=== PATIENT | male | born 1960 | race Caucasian/White ===

== ENCOUNTER → 2017-05-09 | Outpatient (CLI) | payer OTHER ==
[~2017-05-09] MED LIST: EFFSR75 PO; WLLSR100 PO
[2017-05-09 12:06] LABS: BASO % 0.6 %; BASO ABS # 0.04 K/uL (0-0.2); EOS % 2.9 %; HEMATOCRIT 43.2 % (42-52); HEMOGLOBIN 15.1 g/dL (14.0-18.0); IG# 0.03 K/uL (0.00-0.02); LYMPH % 20.7 %; LYMPH ABS # 1.42 K/uL (1.2-3.4); MEAN CELL VOLUME 95.2 fL (80-100); MEAN CORPUSCULAR HEMOGLOBIN 33.3 pg (25-34); MEAN PLATELET VOLUME 9.3 fL (7.4-10.4); MONO % 10.5 %; MONO ABS # 0.72 K/uL (0.11-0.59); NEUT % 64.9 %; NEUT ABS # 4.44 K/uL (1.4-6.5); PLATELET COUNT 248 K/uL (130-400); RED CELL DISTRIBUTION WIDTH CV 13.2 % (11.5-14.5); RED CELL DISTRIBUTION WIDTH SD 45.8 fL (36.4-46.3); WHITE BLOOD COUNT 6.85 K/uL (4.8-10.8)
[2017-05-09 12:54] LABS: BLOOD UREA NITROGEN 16 mg/dl (7-18); CALCIUM 9.1 mg/dl (8.5-10.1); CARBON DIOXIDE 31 mmol/L (21-32); GLUCOSE 119 mg/dl (70-99); POTASSIUM 4.2 mmol/L (3.5-5.1); SODIUM 138 mmol/L (136-145)
== END | disposition home or self-care (01) ==
LOC: C.CPL 10:02
PROVIDERS: ATTEND Orthopaedic Surgery
DX: Z01.812 Encounter for preprocedural laboratory examination (principal); M25.511 Pain in right shoulder; Z01.810 Encounter for preprocedural cardiovascular examination

== ENCOUNTER → 2017-05-31 | Day surgery (SDC) | payer OTHER ==
[2017-05-15 07:36] VITALS: Ht 171.5 cm; Wt 75.5 kg
[~2017-05-31] VITALS: Ht 171.5 cm; Wt 75.5 kg
[~2017-05-31] MED LIST changes: +AMPH1TAB PO; +ATROPINE SULFATE 0.1 MG/ML 5ML SYR IV PRN; +BUPIVACAINE 0.25% 30 ML VIAL ONE; +BUPR-79 PO; +CEFAZOLIN 2000MG IV PUSH 15 ML IV SCH; -EFFSR75 PO; +EpHEDrine SULFATE 50MG/5ML SYR ONE; +EpINEphrine HCL INJ 1 MG/ML 1ML SYRINGE ONE; +FENTANYL CITRATE INJ 50 MCG/1 ML 2 ML VIAL IV PRN; +FENTANYL CITRATE INJ 50 MCG/1 ML 2 ML VIAL ONE; +IBUP1CAP9 PO; +KETO10TA PO; +KETOROLAC TROMETHAMINE 30 MG/ML VIAL IV. PRN; +LABETALOL HCL IV 5 MG/ML 20ML IV PRN; +LACTATED RINGER'S 1000ML 1,000 ML IV SCH; +LIDOCAINE HCL 2% 2 ML VIAL (20MG/ML) ONE; +MIDAZOLAM HCL 1 MG/ML 2ML VIAL ONE; +MULT-506 PO; +ONDANSETRON INJ 2 MG/ML 2 ML VIAL IV PRN; +ONDANSETRON INJ 2 MG/ML 2 ML VIAL ONE; +OXYC-57 PO; +OXYCODONE/ACETAMINOPHEN 5-325 TAB PO PRN; +PROPOFOL IV EMULSION 10 MG/ML 20 ML VIAL IV ONE; +ROCURONIUM BROMIDE 10 MG/ML 5 ML VIAL IV ONE; +ROPIVACAINE 0.5% 5 MG/ML 30 ML VIAL ONE; +SODIUM CHLORIDE 0.9% 1000ML 1,000 ML IV SCH; +TRAM-10 PO; +VORT1TAB3 PO; -WLLSR100 PO
--- NOTE | 2017-05-31 11:04 | History & Physical Bridge - [place] ---
H&P Re-Evaluation Bridge Note: I have examined the patient, reviewed the History & Physical and in the interval since the performance of the History & Physical I have noted the following changes of clinical significance: No changes noted
--- NOTE | 2017-05-31 15:52 | [facility] Post Operative Brief Note ---
Immediate Operative Summary Operative Date May 31, 2017. Pre-Operative Diagnosis Right Shoulder Full Thickness Rotator Cuff Tear Post-Operative Diagnosis same Procedure(s) Performed Right shoulder arthroscopic massive rotator cuff repair, extensive debridement. Surgeon Dr. Jessica Yang Counseling Services Director Surgeon(s) Laz Diallo PA-C Estimated Blood Loss 5ML Findings Consistent with Post-Op Diagnosis Specimens none Drains None Anesthesia Type General Regional Complication(s) none Disposition Disposition: Recovery Room / PACU
--- NOTE | 2017-05-31 15:53 | Discharge Instructions-SurgCtr ---
Discharge Instructions Date of Service May 31, 2017. Visit Reason for Visit: Right Shoulder Full Thickness Rotator Cuff Tear Discharge Discharge Diagnosis / Problem: SAME ABOVE Discharge Goals Goal(s): Decrease discomfort, Improve function Medications Stopped Medications Name(s): Ibuprofen Restart Stopped Medication(s): DO NOT TAKE IBUPROFEN UNTIL FINISHED WITH THE TORADOL TAKE TORADOL EVERY 8 HOURS WITH FOOD Activity Recommendations Activity Limitations: as noted below Lifting Limitations: until after follow-up appointment Exercise/Sports Limitations: until after follow-up appointment Shower/Bathe: tomorrow Anesthesia . Post Anesthesia Instructions: If you have had General Anesthesia or IV Sedation: * Do not drive today. * Resume driving when surgeon permits. * Do not make important decisions or sign legal documents today. * Call surgeon for: 1. Temperature elevations greater than 101 degrees F. 2. Uncontrollable pain. 3. Excessive bleeding. 4. Persistent nausea and vomiting. 5. Medication intolerance (nausea, vomiting or rash). * For nausea and vomiting use only clear liquids such as: tea, soda, bouillon until nausea subsides, then gradually increase diet as tolerated. * If you have any concerns or questions, call your surgeon's office. If physician is unavailable and it is an emergency, call 911 or go to the nearest emergency room. . Instructions / Follow-Up Instructions / Follow-Up MEDICATIONS: * Resume previous medications unless instructed otherwise by your surgeon. * Always take pain medication on a full stomach or with food to avoid upset stomach. * Do not drink alcohol or drive while taking narcotics. * Ibuprofen or Tylenol may be taken if narcotic not needed. SPECIAL CARE INSTRUCTIONS: __ None _X_ Keep extremity elevated and iced x 48 hours; apply ice 20-30 minutes 8-10 times/day. May remove at night. __ Sling __24 hrs/day __ Remove at night _X_ Shoulder Immobilizer (MAY REMOVE AFTER 48 HOURS ONLY TO SHOWER) _X_ 24 hrs/day __ Remove at night _X_ Dressing __ Maintain until seen in office, may shower with plastic over site _X_ Remove dressings in 24-48 hours and then may shower _X_ Cover incisions with band-aids after showering __ Do not remove steri-strips Call physician if chills or temperature rises above 102 degrees or pain unrelieved by prescribed pain medications at . . Diet Recommendations Home Diet: no limitations Fluid Restriction: None Procedures Procedures Performed: Right shoulder arthroscopic massive rotator cuff repair, extensive debridement. Pending Studies Studies pending at discharge: no Work Instructions Return To Work: after follow-up Lifting Limitations: NO LIFTING WITH RIGHT SHOULDER Medical Emergencies . Who to Call and When: Medical Emergencies: If at any time you feel your situation is an emergency, please call 911 immediately. . Non-Emergent Contact Non-Emergency issues call your: Primary Care Provider Call Non-Emergent contact if: you have a fever, temperature is above 101.5 . . "Provider Documentation" section prepared by Kenney Diallo. .
[2017-05-31 16:43] VITALS: TEMP 36.9
[2017-05-31 17:06] VITALS: BP 160/87; PULSE 59; O2SAT 95
--- NOTE | 2017-05-31 17:12 | Anesthesia Progress Nt - [facility] ---
Anesthesia Post Op Note Date & Time May 31, 2017 at 17:12 Vital Signs Vital Signs Past 12 Hours Date Time Temp Pulse Resp B/P (MAP) Pulse Ox O2 Delivery O2 Flow Rate FiO2 05/31/17 17:06 59 16 160/87 (111) 95 Room Air 05/31/17 16:43 36.9 67 16 149/93 (111) 94 Room Air 05/31/17 16:28 68 15 05/31/17 16:28 64 15 98 05/31/17 16:27 37.0 63 16 145/94 98 Room Air 05/31/17 16:26 145/94 05/31/17 16:23 59 17 05/31/17 16:23 60 17 98 05/31/17 16:21 179/88 05/31/17 16:18 66 17 05/31/17 16:18 65 17 96 05/31/17 16:17 166/92 05/31/17 16:13 54 16 05/31/17 16:13 56 16 100 05/31/17 16:12 177/57 05/31/17 16:08 60 18 05/31/17 16:08 59 18 100 05/31/17 16:06 182/112 05/31/17 16:03 64 18 100 05/31/17 16:03 65 18 05/31/17 16:01 189/131 05/31/17 15:58 63 22 05/31/17 15:58 63 22 99 05/31/17 15:56 177/106 05/31/17 15:53 68 18 174/100 97 05/31/17 15:53 71 18 05/31/17 15:52 188/107 05/31/17 15:51 36.4 71 20 174/100 99 Mask 6 05/31/17 13:08 59 19 99 05/31/17 13:08 58 05/31/17 13:07 61 17 99 05/31/17 13:07 61 05/31/17 13:06 138/83 05/31/17 13:02 65 05/31/17 13:02 62 99 05/31/17 13:01 122/83 05/31/17 13:00 63 99 05/31/17 13:00 58 05/31/17 12:56 125/82 05/31/17 12:55 67 05/31/17 12:55 68 17 99 05/31/17 12:51 134/81 05/31/17 12:50 62 05/31/17 12:50 66 98 05/31/17 12:46 118/81 05/31/17 12:45 65 98 05/31/17 12:45 65 05/31/17 12:41 126/88 05/31/17 12:40 62 05/31/17 12:40 69 15 98 05/31/17 12:36 144/86 05/31/17 12:35 73 05/31/17 12:35 72 16 99 05/31/17 12:31 129/82 05/31/17 12:30 63 19 05/31/17 12:30 60 19 96 05/31/17 12:29 134/94 05/31/17 11:01 36.8 62 18 157/87 (110) 98 Room Air Notes Mental Status: alert / awake / arousable, participated in evaluation Pt Amnestic to Procedure: Yes Nausea / Vomiting: adequately controlled Pain: adequately controlled Airway Patency, RR, SpO2: stable & adequate BP & HR: stable & adequate Hydration State: stable & adequate Anesthetic Complications: no major complications apparent
--- NOTE | 2017-05-31 17:35 | OPERATIVE REPORT ---
DATE OF OPERATION: 05/31/2017 PREOPERATIVE DIAGNOSIS: Massive recurrent right rotator cuff tear. POSTOPERATIVE DIAGNOSIS: Massive recurrent rotator cuff tear. PROCEDURE: Right shoulder diagnostic arthroscopy with extensive debridement and massive rotator cuff repair. SURGEON: Dr. Jonah Yang. TELECOMMUNICATION ENGINEER: Laz Diallo PA-C, whose assistance was necessary for positioning the arm and helping with instrumentation. ANESTHESIA: General with a right interscalene nerve block. COMPLICATIONS: None. CONDITION: Stable to PACU. This case took over 50% longer than a normal rotator cuff repair. The sites of the repair involved 3 of the 4 cuff tendons. There was also a revision repair and significant time was spent releasing the scar tissue to free up the rotator cuff. INDICATIONS: Twin is a pleasant 56-year-old male who underwent a large rotator cuff repair by Dr. Mendoza 14 years ago. He initially did fairly well, but more recently he has been having increased shoulder pain. MRI and clinical examination have shown a massive retracted rotator cuff tear. After failing conservative treatment, he elected to undergo arthroscopy. DESCRIPTION OF PROCEDURE: On 05/31/2017, he arrived at [facility] for the above procedure. He was seen in the preoperative holding area and the operative extremity was identified and signed. He was given a preoperative antibiotic and a right interscalene nerve block. He was taken back to the operating room, laid on the table in supine position and put under general anesthesia. He was then put into the beach chair position. The right shoulder was prepped and draped in sterile fashion. Time-out was done and the patient's operative extremity was properly identified. A scope was introduced into the posterior portal. Diagnostic arthroscopy showed no cartilage damage to the humeral head or the glenoid. There was some fraying of the labrum. The biceps tendon had been traumatically tenotomized. There was some tearing of the upper half of the subscapularis. It was elevated off the lesser tuberosity. There was a tear of the entire supraspinatus and most of the infraspinatus. The teres minor was intact. An anterior portal was made. A shaver was used to start an extensive debridement of some of the intra-articular structures. The biceps stump was debrided back to stable margins. The scope was then put into the subacromial space. A lateral portal was made. A shaver was used to do a complete subacromial and subdeltoid bursectomy. Significant time was spent debriding back any scar tissue to better define the cuff tear. Two additional lateral portal were made and Adeola cannulas were placed in each of the 3 lateral portals. I felt that the tear was amenable to repair and did not need a superior capsular reconstruction. The greater tuberosity was prepared with a ring curette and a microfracture. I did medialize the footprint. The rotator cuff was then fixed with an Arthrex suspension bridge configuration using 4 medial row 4.75-mm BioComposite SwiveLock suture anchors with FiberTapes. The tapes were passed through the tendon at the anticipated articular margin and brought down to 1 of 4 lateral row SwiveLock suture anchors. This gave a nice knotless repair. I did span the construct all the way around to include the upper half of the subscapularis. I was able to restore more than 50% of the footprint. Multiple pictures were taken. The scope was placed back into the glenohumeral joint and the articular margin had been restored. Pictures were taken. Arthroscopic instruments were removed from the shoulder. Portal sites were closed with 3-0 nylon. He was then placed in a soft dressing and an abduction arm sling. He was then extubated, transferred to a litter and taken to the postanesthesia care unit in stable condition. He tolerated the procedure well. I attest to the content of the Intraoperative Record and any orders documented therein. Any exception s are noted below.
== END | disposition home or self-care (01) ==
LOC: X.SURG 10:22
PROVIDERS: ATTEND Orthopaedic Surgery
DX: S46.011A Strain of muscle(s) and tendon(s) of the rotator cuff of right shoulder, initial encounter (principal); W19.XXXA Unspecified fall, initial encounter; Y92.254 Theater (live) as the place of occurrence of the external cause; F32.9 Major depressive disorder, single episode, unspecified; Z96.643 Presence of artificial hip joint, bilateral

== ENCOUNTER 2025-02-02 07:26 | Inpatient (IN) ==
--- NOTE | 2025-02-02 07:52 | Emergency Department Note ---
Impression & Plan Cellulitis of right ankle, Ankle pain, right ED Provider Note CHIEF COMPLAINT: Stung/bite HISTORY OF PRESENTING ILLNESS: The patient is a 64-year-old male who reports to the emergency department via private vehicle stating that he was bit by something about a week ago. He believes that it was an insect or a sting but is not sure. The area of discomfort is on the right outer ankle. He reports going to urgent care 2 days ago, starting antibiotics yesterday, and that the redness is spreading outside of the skin marker that was drawn at urgent care. Reports noticing pain in the right calf. He denies fever, nausea, vomiting, chest pain, shortness of breath, drainage from the area. REVIEW OF SYSTEMS: See HPI for pertinent positives and pertinent negatives. ALLERGIES: NKDA MEDICATIONS: See below PAST MEDICAL HISTORY: See below PHYSICAL EXAM: VITALS: Vitals are noted on the nurses note and reviewed by myself. Vital signs stable. GENERAL: 64-year-old male, lying comfortably in bed, in no acute distress, nondiaphoretic, well-developed well-nourished. SKIN: Area of circular erythema on the lateral aspect of the right ankle. Skin marker previously applied with a mild amount of erythema extending out of it. No fluctuance or drainage. HEENT: Normocephalic. PERRLA. EOMI. Nares patent. Mucous membranes moist. Neck is supple without nuchal rigidity. MUSCULOSKELETAL: No gross musculoskeletal defects. Right ankle FROM. No calf tenderness. 2+ dorsalis pedis pulse palpated bilaterally. NEURO: Patient was alert and oriented to person place and time. No focal neurological deficits. DIFFERENTIAL DIAGNOSIS: Cellulitis, erysipelas, abscess, foreign body, osteomyelitis, dermatitis, DVT, among others. ED COURSE AND MEDICAL DECISION MAKING: HISTORY FROM INDEPENDENT HISTORIAN: The patient himself. MEDICATIONS GIVEN: 2 g Rocephin IV, denies the need for pain management INTERPRETATION OF LABS: I interpreted the labs with full lab results as below in the lab section of this note. Pertinent lab results discussed in the MDM section below. INTERPRETATION OF IMAGING: Imaging studies were interpreted by myself and read by radiology as per the imaging section of this note. X-ray right ankle - No osteomyelitis. No fracture. Achilles tendon calcifications CONSULTATIONS: On-call [facility]ist - Presented the patient to the provider and that patient's right ankle cellulitis is worsening on oral antibiotics. Agreed to evaluate the patient and admitting for IV antibiotics. MDM SUMMARY: I evaluated the 64-year-old male who presents to the ER after being stung/bit by something a week ago, starting antibiotics, and worsening redness. See HPI and PE above. Patient's vitals are stable. 2 g Rocephin IV was given. Labs obtained showing no leukocytosis. Hemodynamically stable. No electrolyte abnormality. No CHET. Lactate 1.1. Procalcitonin <0.02. X-ray obtained showing no osteomyelitis or fracture. All laboratory and imaging results thoroughly reviewed with the patient. A consultation with the on-call [facility] hospitalist can be seen above. I do believe the patient would benefit from IV antibiotics and monitoring overnight. Patient is agreeable to admission and all questions answered. The patient was admitted in stable condition. DIAGNOSIS: Cellulitis right ankle, right ankle pain The chart was completed utilizing [employer] voice recognition software. Grammatical errors, random word insertions, pronoun errors, and incomplete sentences are an occasional consequence of this system due to software limitations, ambient noise, and hardware issues. Any formal questions or concerns about the content, text, or information contained within the body of this dictation should be directly addressed to the provider for clarification. Past Med/Surg History Problem List At risk for alcohol withdrawal History of alcohol use Ankle pain, right (Acute) Cellulitis of right ankle (Acute) Cellulitis of right lower extremity Ganglion, left hand Left carpal tunnel syndrome Low back pain Left knee DJD Left knee pain H/O bilateral hip replacements Rupture of left Achilles tendon Encounter for pre-operative examination Achilles rupture, left Achilles tendonitis Encounter for pre-operative examination Wrist arthritis Carpal tunnel syndrome on both sides Degeneration of intervertebral disc of cervical spine without disc herniation Numbness of arm Neck pain Lumbar disc herniation with myelopathy Degenerative disc disease at L5-S1 level (Acute) Suicidal ideation (Acute) Depression (Acute) Medical History Depression Rheumatoid arthritis possibly in the past? no definite diagnosis, has since resolved. Medical marijuana use History of multiple concussions History of ulcerative colitis Surgical History History of carpal tunnel release RT History of repair of right rotator cuff x2 History of repair of left rotator cuff History of arthroscopy of left knee x3 History of arthroscopy of right knee x6 History of total left hip replacement History of total right hip replacement History of colonoscopy History of right inguinal hernia repair at age of 4 History of wisdom tooth extraction Hx of LASIK Family History Sister Hx of chronic lymphocytic leukemia Brother Hx of chronic lymphocytic leukemia Other Cancer No family history of adverse response to anesthesia Social History Smoking Status: Never smoker Second Hand Exposure: No; Do You Dip or Chew Tobacco: Yes; Hx Alcohol Use: Yes Alcohol type: beer Hx Substance Use: Yes Last Used Substance: Hours (ago) Last Used Substance Other:: 07/10/24 (advised on policy) Preferred Language: Moldovan Communication Ability: Effective Bag Sealer Required: No Beliefs That Will Affect Care: None Current Living Situation: Alone Other Information That Helps Us Care for You: No Feels Safe at Home: Yes Safety Concerns: Feels Safe At This Time Assistive Devices: None Allergies Allergies Allergy/AdvReac Type Severity Reaction Status Date / Time bee venom protein (honey bee) Allergy Unknown Unverified 02/02/25 10:34 shellfish derived Allergy Unknown Unverified 02/02/25 10:34 Home Meds Home Medications Medication Instructions Recorded Confirmed bupropion HCl 300 mg 24 hr tablet, 300 mg PO QAM 11/18/20 02/02/25 extended release buspirone 10 mg tablet 20 mg PO QAM 11/18/20 02/02/25 multivitamin 1 tab PO QAM 11/18/20 02/02/25 cyanocobalamin (vitamin B-12) 1,000 mcg PO QAM 02/21/21 02/02/25 1,000 mcg tablet (Vitamin B-12) milk thistle 500 mg capsule 500 mg PO QAM 07/11/24 02/02/25 quetiapine 200 mg tablet 200 mg PO HS 07/11/24 02/02/25 naltrexone 50 mg tablet 50 mg PO QAM 02/02/25 02/02/25 Results & Data (ED) Vital Signs Vital Signs - 24 hr 02/02/25 07:27 02/02/25 08:00 02/02/25 10:00 Temperature 36.5 C Temperature Source Temporal Artery Scan Pulse Rate 93 H Pulse Rate [Right Finger] 70 69 Respiratory Rate 18 18 18 Respiratory Effort / Characteristics Non-Labored Spontaneous Non-Labored Spontaneous Non-Labored Spontaneous Respiratory Depth Normal Normal Normal Respiratory Pattern Regular Regular Blood Pressure 144/93 H Blood Pressure [Left Arm] 142/102 H Blood Pressure Mean 110 Blood Pressure Mean [Left Arm] 115 Blood Pressure Position [Left Arm] Sitting Pulse Oximetry 94 94 96 Oxygen Delivery Method Room Air Room Air Room Air Sepsis Recent Fever Within 48 Hours No Sepsis New/Unexplained Change in Mental Status N/A Sepsis Action Taken by Nursing No Action Required Laboratory Data 02/02/25 07:50 02/02/25 07:50 Lab Results 02/02/25 02/02/25 Range/Units 07:50 08:16 WBC 8.13 (4.8-10.8) K/ul RBC 4.63 L (4.70-6.10) M/uL Hgb 15.3 (14.0-18.0) g/dl Hct 44.0 (42.0-52.0) % MCV 95.0 (80.0-100.0) fL MCH 33.0 (25.0-34.0) pg MCHC 34.8 (32.0-36.0) g/dL RDW Std Deviation 44.0 (36.4-46.3) fL RDW Coeff of Ye 12.6 (11.5-14.5) % Plt Count 275 (130-400) K/uL MPV 9.0 L (9.4-12.4) fL Immature Gran % (Auto) 0.6 % Neut % (Auto) 64.2 % Lymph % (Auto) 20.3 % Crook % (Auto) 11.9 % Eos % (Auto) 2.1 % Baso % (Auto) 0.9 % Neut # (Auto) 5.22 (1.40-6.50) K/uL Lymph # (Auto) 1.65 (1.20-3.40) K/uL Crook # (Auto) 0.97 H (0.11-0.59) K/uL Eos # (Auto) 0.17 (0.00-0.50) K/uL Baso # (Auto) 0.07 (0.00-0.20) K/uL Immature Gran # (Auto) 0.05 (0.01-0.20) K/uL Sodium 140 (136-145) mmol/L Potassium 4.3 (3.5-5.1) mmol/L Chloride 106 (98-107) mmol/L Carbon Dioxide 27 (21-32) mmol/L Anion Gap 7 (3-11) BUN 12 (6-23) mg/dl Creatinine 0.87 (0.6-1.4) mg/dl Est Cr Clr Drug Dosing 79.1 ml/min eGFR 95.76 BUN/Creatinine Ratio 13.8 (10-20) Glucose 119 H (70-99(Fasting)) mg/dl Lactate 1.1 (0.4-2.0) mmol/L Calcium 9.3 (8.6-10.3) mg/dl Total Bilirubin 0.6 (0.2-1.0) mg/dl AST 27 (13-39) U/L ALT 17 (7-52) U/L Alkaline Phosphatase 70 (34-104) U/L Total Protein 6.8 (6.0-8.3) gm/dl Albumin 3.8 (3.4-5.0) gm/dl Globulin 3.0 (2.5-4.0) gm/dl Albumin/Globulin Ratio 1.3 (0.9-2) Procalcitonin < 0.02 (0-0.5) ng/ml Administered Medications Chlordiazepoxide HCl (Chlordiazepoxide Hcl 25 Mg Cap) 25 mg PO Q6H LOBO; Protocol Stop: 02/03/25 06:47 Last Admin: 02/02/25 15:57 Dose: 25 mg Documented By: HERMES Enoxaparin Sodium (Enoxaparin Inj 40 Mg/0.4 Ml Syr) 40 mg SQ Q24H [facility] Stop: 03/04/25 12:59 Last Admin: 02/02/25 14:13 Dose: 40 mg Documented By: DONN Folic Acid (Folic Acid 1 Mg Tab) 1 mg PO QAM LOBO Stop: 03/04/25 12:45 Last Admin: 02/02/25 14:15 Dose: 1 mg Documented By: DONN Lactobacillus Acidophilus (Advanced Probiotic 625 Mg Capsule) 1,250 mg PO DAILY [facility] Stop: 03/04/25 12:45 Last Admin: 02/02/25 14:14 Dose: 1,250 mg Documented By: DONN Thiamine HCl (Thiamine Hcl 100 Mg Tab) 100 mg PO QAM LOBO Stop: 03/04/25 12:45 Last Admin: 02/02/25 14:13 Dose: 100 mg Documented By: DONN Discontinued Medications Bupropion HCl (Bupropion Xl 300 Mg Tabcr) 300 mg PO NOW STA Stop: 02/02/25 11:12 Last Admin: 02/02/25 11:36 Dose: 300 mg Documented By: sharmila Buspirone HCl (Buspirone 5 Mg Tab) 20 mg PO NOW STA Stop: 02/02/25 11:12 Last Admin: 02/02/25 11:34 Dose: 20 mg Documented By: sharmila Cyanocobalamin (Cyanocobalamin (B-12) 500 Mcg Tablet) 1,000 mcg PO NOW STA Stop: 02/02/25 11:13 Last Admin: 02/02/25 11:35 Dose: 1,000 mcg Documented By: sharmila Ceftriaxone Sodium (Rocephin) 2,000 mg in 50 mls @ 100 mls/hr IV NOW STA Stop: 02/02/25 08:29 Last Infusion: 02/02/25 08:46 Dose: Infused Documented By: sharmila Admin: 02/02/25 08:14 Dose: 100 mls/hr Documented By: sharmila Ibuprofen (Ibuprofen 600 Mg Tab) 600 mg PO NOW STA Stop: 02/02/25 10:55 Last Admin: 02/02/25 11:32 Dose: 600 mg Documented By: sharmila Multivitamins (Multivitamin Tab) 1 tab PO NOW STA Stop: 02/02/25 11:14 Last Admin: 02/02/25 11:35 Dose: 1 tab Documented By: sharmila Naltrexone HCl (Naltrexone Hcl 50 Mg Tab) 50 mg PO NOW STA Stop: 02/02/25 11:12 Last Admin: 02/02/25 11:32 Dose: 50 mg Documented By: sharmila Imaging Data Radiologist's Impression: Ankle X-Ray 02/02/25 08:00 XR ankle RT min 3V routine CLINICAL HISTORY: Infection right ankle COMPARISON: None FINDINGS: 3 views are provided for interpretation. No fractures or dislocations are visualized. There are no erosive or destructive changes. There are calcifications present within the Achilles tendon. There is a small bone island within the distal tibial metaphysis. No gas is visualized within the soft tissues. IMPRESSION: 1. No conventional radiographic evidence of osteomyelitis 2. No acute fractures 3. Achilles tendon calcifications ACT 112: Negative or not required by law. Electronically signed by: Jermain Steiner M.D. 02/02/2025 8:30 AM Discharge Plan Visit Data Chief Complaint: Bite Stated Complaint: STUNG/BITE ED Provider: Pauline Patel ED Midlevel Provider: Babs Boyle Discharge Problem: Cellulitis of right ankle, Ankle pain, right Patient Disposition: Admitted As Inpatient Condition: Good Discharge Instructions Interventions: ED Discharge Assessment Last Done: 02/02/25 12:46
[2025-02-02] MEDS: cefTRIAXone SODIUM 2,000 MG/50 ML BAG IV STA (08:14)
[2025-02-02 08:33] LABS: Hematocrit (blood only) 44.0 % (42.0-52.0); Hemoglobin 15.3 g/dl (14.0-18.0); Immature Granulocytes # (auto) 0.05 K/uL (0.01-0.20); Immature Granulocytes % (auto) 0.6 %; Mean Corpuscular Hemoglobin 33.0 pg (25.0-34.0); Mean Corpuscular Volume 95.0 fL (80.0-100.0); Platelet Count 275 K/uL (130-400); RDW Standard Deviation 44.0 fL (36.4-46.3); Red Blood Count 4.63 M/uL (4.70-6.10); White Blood Count 8.13 K/ul (4.8-10.8)
--- NOTE | 2025-02-02 08:33 | XRay Report ---
XR ankle RT min 3V routine CLINICAL HISTORY: Infection right ankle COMPARISON: None FINDINGS: 3 views are provided for interpretation. No fractures or dislocations are visualized. Ther e are no erosive or destructive changes. There are calcifications present within the Achilles tendon. There is a small bone island within the distal tibial metaphysis. No gas is visualized within the so ft tissues. IMPRESSION: 1. No conventional radiographic evidence of osteomyelitis 2. No acute fractures 3. Achilles tendon calcifications ACT 112: Negative or not required by law. Electronically signed by: Jermain Steiner M.D. 02/02/2025 8:30 AM
[2025-02-02 08:54] LABS: Alanine Aminotransferase 17.0 U/L (7-52); Albumin Globulin Ratio 1.3 (0.9-2); Albumin Level 3.8 gm/dl (3.4-5.0); Alkaline Phosphatase 70.0 U/L (34-104); Anion Gap 7.0 (3-11); Bilirubin,Total 0.6 mg/dl (0.2-1.0); Blood Urea Nitrogen 12.0 mg/dl (6-23); Calcium 9.3 mg/dl (8.6-10.3); Carbon Dioxide 27.0 mmol/L (21-32); Chloride 106.0 mmol/L (98-107); Creatinine Clr Calc Pharmacy 79.1 ml/min; Globulin 3.0 gm/dl (2.5-4.0); Glucose 119.0 mg/dl (70-99(Fasting)); Potassium 4.3 mmol/L (3.5-5.1); Sodium 140.0 mmol/L (136-145); Total Protein 6.8 gm/dl (6.0-8.3)
--- NOTE | 2025-02-02 09:49 | History & Physical Report ---
<Statement entered by Venu Parmar DO - 02/02/25 11:47> I have seen and examined the patient and have discussed the case with the advance practice provider. I have reviewed the advanced practitioner's documentation, and I agree with, and take responsibility for that plan of care. Patient states that his pretty much remained stable and the redness around his lateral malleolus the last 24 hours. He denies any fever or chills. Does admit to still using a fair amount of alcohol. Agree with plans for IV antibiotics Discussed with the patient and SANDOR some scheduled Librium to manage any early signs of alcohol withdrawal. Patient states that he occasionally will have some shakes and tremors if he stops drinking alcohol for a period of time. Further plan of care as outlined below I spent a total of 17 minutes coordinating, documenting, and providing care for this patient excluding time spent by another provider/QHP. Date of Service February 02, 2025 Assessment & Plan (1) Cellulitis of right lower extremity: (2) History of alcohol use: (3) At risk for alcohol withdrawal: Plan: Patient is a 64-year-old male with past medical history significant for generalized osteoarthritis, inflammatory arthritis, chondrocalcinosis, ADD and history of alcohol abuse who presented the ED with complaint of an infected bug bite on his right ankle and was found to have RLE cellulitis. Cellulitis of R ankle region, lateral aspect Bug bite on lateral aspect of R ankle approximately 1 week ago. 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 Developed erythema and pain around bite site starting on . Was seen by urgent care on Sunday and started on po Keflex. Took 4 doses. Erythema, pain and swelling continued to worsen despite compliance with Keflex. No reported systemic complaints such as fever or chills. Labs personally reviewed and grossly unremarkable - no leukocytosis, negative procal. R ankle XR grossly unremarkable. S/p dose of IV Rocephin in ED. Will continue IV Rocephin for now and monitor treatment response. History of alcohol abuse Chronic alcohol use >20yr. Consumes 3-4 beers/day. Previously was consuming 12-pack of beer/day. Has been slowly weaning, recently started on naltrexone a few weeks ago. No prior personal h/o alcohol withdrawal or alcohol withdrawal seizures. Start Librium taper course, PRN Ativan per AWSS protocol. Monitor AWSS scoring. Other chronic medical conditions: ADD/mood disorder - Continue home psych medication regimen including Wellbutrin, BuSpar and Seroquel. 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 DVT Prophylaxis: SQ Lovenox Code Status: FULL CODE PCP: Benjamin Holly MD Disposition: Admit to med/surg Patient seen in collaboration with Dr. Parmar. Please see addendum. I spent a total of 52 minutes coordinating, documenting, and providing care for this patient excluding time spent in the performance of separately billed services or time spent by another provider/QHP. This included personally reviewing all current laboratories and imaging studies, medical reconciliation, outpatient chart review and discussion with specialists. This chart was completed in part utilizing Speech Voice Recognition Software. Grammatical errors, random word insertions, pronoun errors, and incomplete sentences are an occasional consequence of this system due to software limitations, ambient noise, and hardware issues. Any formal questions or concerns about the content, text, or information contained within the body of this dictation should be directly addressed to the provider for clarification. History of Present Illness Chief Complaint: Infected bug bite on R ankle Primary Care Provider: Benjamin Holly MD Patient is a 64-year-old male with past medical history significant for generalized osteoarthritis, inflammatory arthritis, chondrocalcinosis, ADD and history of alcohol abuse who presented the ED with complaint of an infected bug bite on his right ankle. History obtained from the patient, discussion with ED provider and associated chart review. Noticed a bug bite on the lateral aspect of his right ankle approximately 1 week ago. Unclear what exactly bit him. Mentions that area of the bite has been quite pruritic. Started to develop erythema surrounding the bite site last which has progressively worsened. Mentions erythematous area is mildly TTP and warm to touch. No reported fevers or chills. Was seen at an urgent care facility on Sunday and prescribed oral Keflex. The area of erythema on his lateral right ankle was outlined with surgical marker. The erythema has slowly continued to spread beyond the surgical marking despite compliance with oral antibiotic therapy which ultimately made him decide to come in to the ED. Mild discomfort with movement of the right ankle joint but otherwise no changes in joint mobility. No prior cigarette use. Recreational marijuana use. Chronic alcohol use >20 years. Consumes 3-4 beers/day, last alcoholic beverage consumed yesterday afternoon. Has been weaning down. Previously was drinking a 12-pack of beer/day. On naltrexone with the intention of quitting eventually. Strong family history of alcoholism. No personal history of alcohol withdrawal or alcohol withdrawal seizures. Allergies Allergy/AdvReac Type Severity Reaction Status Date / Time bee venom protein (honey bee) Allergy Unknown Unverified 02/02/25 10:34 shellfish derived Allergy Unknown Unverified 02/02/25 10:34 Home Medications Medication Instructions Recorded Confirmed Type bupropion HCl 300 mg 24 hr tablet, 300 mg PO QAM 11/18/20 02/02/25 History extended release buspirone 10 mg tablet 20 mg PO QAM 11/18/20 02/02/25 History multivitamin 1 tab PO QAM 11/18/20 02/02/25 History cyanocobalamin (vitamin B-12) 1,000 mcg PO QAM 02/21/21 02/02/25 History 1,000 mcg tablet (Vitamin B-12) milk thistle 500 mg capsule 500 mg PO QAM 07/11/24 02/02/25 History quetiapine 200 mg tablet 200 mg PO HS 07/11/24 02/02/25 History naltrexone 50 mg tablet 50 mg PO QAM 02/02/25 02/02/25 History Past Med/Surg History Problem List (Updated 02/02/25 @ 11:29 by Reva Levy PA-C) At risk for alcohol withdrawal History of alcohol use Ankle pain, right (Acute) Cellulitis of right ankle (Acute) Cellulitis of right lower extremity Ganglion, left hand Left carpal tunnel syndrome Low back pain Left knee DJD Left knee pain H/O bilateral hip replacements Rupture of left Achilles tendon Encounter for pre-operative examination Achilles rupture, left Achilles tendonitis Encounter for pre-operative examination Wrist arthritis Carpal tunnel syndrome on both sides Degeneration of intervertebral disc of cervical spine without disc herniation Numbness of arm Neck pain Lumbar disc herniation with myelopathy Degenerative disc disease at L5-S1 level (Acute) Suicidal ideation (Acute) Depression (Acute) Medical History Depression Rheumatoid arthritis possibly in the past? no definite diagnosis, has since resolved. Medical marijuana use History of multiple concussions History of ulcerative colitis Surgical History History of carpal tunnel release RT History of repair of right rotator cuff x2 History of repair of left rotator cuff History of arthroscopy of left knee x3 History of arthroscopy of right knee x6 History of total left hip replacement History of total right hip replacement History of colonoscopy History of right inguinal hernia repair at age of 4 History of wisdom tooth extraction Hx of LASIK Family History Sister Hx of chronic lymphocytic leukemia Brother Hx of chronic lymphocytic leukemia Other Cancer No family history of adverse response to anesthesia Social History Smoking Status: Never smoker Second Hand Exposure: No; Do You Dip or Chew Tobacco: Yes (1 can nicotine pouches/week (advised on polic y)); Hx Alcohol Use: Yes Hx Substance Use: Yes (medical marijuana) Last Used Substance Other:: 07/10/24 (advised on policy) Preferred Language: Arabic Communication Ability: Effective Copier Operator Required: No Beliefs That Will Affect Care: None Current Living Situation: Alone Feels Safe at Home: Yes Assistive Devices: None Review of Systems Review of Systems: At least ten systems reviewed and negative, except as noted in the HPI. Physical Exam Physical Exam: General: WD/WN, NAD, sitting up in bed, A&Ox3, conversing appropriately HEENT: Normocephalic, atraumatic, moist mucous membranes Respiratory: Normal respiratory effort, CTAB Cardiovascular: RRR, normal peripheral pulses, no BLE edema Abdomen/GI: Normal bowel sounds, soft, nontender to palpation in all quadrants Extremities/MSK: Area of circular erythema on lateral aspect of R ankle (surgical marker outlining this region with minimal erythema extending beyond the demarcation), extremities motor strength intact, able to actively move all extremities Neurologic: No overt focal deficits, CN's II-XI not formally tested but appear grossly intact bilaterally Results & Data Results & Data Vital Signs (Past 12 Hours) Vital Signs Temp Pulse Pulse Resp BP Pulse Ox O2 Del Method 02/02/25 08:00 70 18 94 Room Air 02/02/25 07:27 36.5 C 93 H 18 144/93 H 94 Room Air Laboratory Results Short CBC 02/02/25 Range/Units 07:50 WBC 8.13 (4.8-10.8) K/ul Hgb 15.3 (14.0-18.0) g/dl Hct 44.0 (42.0-52.0) % Plt Count 275 (130-400) K/uL BMP 02/02/25 07:50 Sodium 140 Potassium 4.3 Chloride 106 Carbon Dioxide 27 BUN 12 Creatinine 0.87 Glucose 119 H Calcium 9.3 Liver Function 02/02/25 Range/Units 07:50 Total Bilirubin 0.6 (0.2-1.0) mg/dl AST 27 (13-39) U/L ALT 17 (7-52) U/L Alkaline Phosphatase 70 (34-104) U/L Albumin 3.8 (3.4-5.0) gm/dl Diagnostic Findings Ankle X-Ray 02/02/25 08:00 XR ankle RT min 3V routine CLINICAL HISTORY: Infection right ankle COMPARISON: None FINDINGS: 3 views are provided for interpretation. No fractures or dislocations are visualized. There are no erosive or destructive changes. There are calcifications present within the Achilles tendon. There is a small bone island within the distal tibial metaphysis. No gas is visualized within the soft tissue s. IMPRESSION: 1. No conventional radiographic evidence of osteomyelitis 2. No acute fractures 3. Achilles tendon calcifications ACT 112: Negative or not required by law. Electronically signed by: Jermain Steiner M.D. 02/02/2025 8:30 AM Medications Administered Discontinued Medications Ceftriaxone Sodium (Rocephin) 2,000 mg in 50 mls @ 100 mls/hr IV NOW STA Stop: 02/02/25 08:29 Last Infusion: 02/02/25 08:46 Dose: Infused Documented By: sharmila Admin: 02/02/25 08:14 Dose: 100 mls/hr Documented By: sharmila
--- NOTE | 2025-02-02 10:20 | Emergency Department Note ---
ED Visit Note I was consulted by the Advanced Practice Provider. I personally approved the management plan and take responsibility for the patient management. This includes the aspects of: -History/Physical/Personally seeing the patient -MDM -I independently interpreted the following studies:Studies and results .
[2025-02-02] MEDS ORDERED: NON-FORMULARY MEDICATION (Multivitamin 1 TAB) PO STA (11:12)
[2025-02-02] MEDS: NALTREXONE HCL 50 MG TAB PO STA (11:32)
[2025-02-02] MEDS: IBUPROFEN 600 MG TAB PO STA (11:32)
[2025-02-02] MEDS: busPIRone 5 MG TAB PO STA (11:34)
[2025-02-02] MEDS: CYANOCOBALAMIN (B-12) 500 MCG TABLET PO STA (11:35)
[2025-02-02] MEDS: MULTIVITAMIN TAB PO STA (11:35)
[2025-02-02] MEDS ORDERED: POLYETHYLENE (MIRALAX) 17 GM PACK PO PRN (12:46)
[2025-02-02] MEDS ORDERED: ACETAMINOPHEN 325 MG TAB PO PRN (12:46)
[2025-02-02] MEDS ORDERED: ONDANSETRON INJ 2 MG/ML 2 ML VIAL IV PRN (12:46)
[2025-02-02] MEDS ORDERED: MAGNESIUM HYDROXIDE SUSP 30 ML UDC PO PRN (12:46)
[2025-02-02] MEDS ORDERED: LORazepam Inj 1 MG in SYRINGE 0.5 ML IV PRN (12:46)
[2025-02-02] MEDS ORDERED: chlordiazePOXIDE ALCOHOL WITHDRAWL 25MG PO STA (12:46)
[2025-02-02] MEDS: ENOXAPARIN INJ 40 MG/0.4 ML SYR SQ SCH (14:13)
[2025-02-02] MEDS: THIAMINE HCL 100 MG TAB PO SCH (14:13)
[2025-02-02] MEDS: ADVANCED PROBIOTIC 625 MG CAPSULE PO SCH (14:14)
[2025-02-02] MEDS: FOLIC ACID 1 MG TAB PO SCH (14:15)
[2025-02-02] MEDS: IBUPROFEN 200 MG TAB PO PRN (23:11)
[2025-02-03 07:12] LABS: Hematocrit (blood only) 42.7 % (42.0-52.0); Hemoglobin 14.5 g/dl (14.0-18.0); Mean Corpuscular Hemoglobin 32.4 pg (25.0-34.0); Mean Corpuscular Volume 95.3 fL (80.0-100.0); Platelet Count 220 K/uL (130-400); RDW Standard Deviation 44.2 fL (36.4-46.3); Red Blood Count 4.48 M/uL (4.70-6.10); White Blood Count 5.62 K/ul (4.8-10.8)
[2025-02-03 07:29] LABS: Anion Gap 4.0 (3-11); Blood Urea Nitrogen 10.0 mg/dl (6-23); Calcium 8.9 mg/dl (8.6-10.3); Carbon Dioxide 31.0 mmol/L (21-32); Chloride 106.0 mmol/L (98-107); Creatinine Clr Calc Pharmacy 76.5 ml/min; Glucose 100.0 mg/dl (70-99(Fasting)); Potassium 4.2 mmol/L (3.5-5.1); Sodium 141.0 mmol/L (136-145)
[2025-02-03] MEDS: cefTRIAXone SODIUM 2,000 MG/50 ML BAG IV SCH (07:45)
[2025-02-03] MEDS: busPIRone 5 MG TAB PO SCH (07:59)
[2025-02-03] MEDS: CYANOCOBALAMIN (B-12) 500 MCG TABLET PO SCH (08:01)
[2025-02-03] MEDS: MULTIVITAMIN TAB PO SCH (08:01)
[2025-02-03] MEDS: NALTREXONE HCL 50 MG TAB PO SCH (08:02)
[2025-02-03] MEDS ORDERED: NON-FORMULARY MEDICATION (Multivitamin Tablet) PO SCH (09:00)
[2025-02-03] MEDS ORDERED: busPIRone 5 MG TAB PO SCH (09:00)
[2025-02-03] MEDS ORDERED: NALTREXONE HCL 50 MG TAB PO SCH (09:00)
--- NOTE | 2025-02-03 12:49 | Hospitalist Progress Note ---
Date of Service February 03, 2025 Assessment & Plan (1) Cellulitis of right lower extremity: (2) History of alcohol use: (3) At risk for alcohol withdrawal: Plan: Patient is a 64-year-old male with past medical history significant for generalized osteoarthritis, inflammatory arthritis, chondrocalcinosis, ADD and history of alcohol abuse who presented the ED with complaint of an infected bug bite on his right ankle and was found to have RLE cellulitis. 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 Developed erythema and pain around bite site starting on . Was seen by urgent care on Sunday and started on po Keflex. Took 4 doses. Erythema, pain and swelling continued to worsen despite compliance with Keflex. No reported systemic complaints such as fever or chills. Labs personally reviewed and grossly unremarkable - no leukocytosis, negative procal. R ankle XR grossly unremarkable. S/p dose of IV Rocephin in ED. c/w rocephin pt reports some improving redness/swelling/pain at right ankle. plan for 7-10 d atb Rx. History of alcohol abuse Chronic alcohol use >20yr. Consumes 3-4 beers/day. Previously was consuming 12-pack of beer/day. Has been slowly weaning, recently started on naltrexone a few weeks ago. No prior personal h/o alcohol withdrawal or alcohol withdrawal seizures. c/w Librium taper course, PRN Ativan per AWSS protocol. Monitor AWSS scoring. Other chronic medical conditions: ADD/mood disorder - Continue home psych medication regimen including Wellbutrin, BuSpar and Seroquel. 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 DVT Prophylaxis: SQ Lovenox Code Status: FULL CODE PCP: Benjamin Holly MD Disposition: Admit to med/surg Admission and Anticipated Discharge Date Admission Date: February 02, 2025 Subjective Patient was seen and examined at bedside. Patient was sitting up in bed, on room air, NAD, resting comfortably. Patient reports his rt ankle redness/pain has slightly improved and he feels better. Patient denies fever/cough/chest pain/sore throat. Physical Exam Physical Exam: General: WD/WN, NAD, sitting up in bed, A&Ox3, conversing appropriately HEENT: Normocephalic, atraumatic, moist mucous membranes Respiratory: Normal respiratory effort, CTAB Cardiovascular: RRR, normal peripheral pulses, no BLE edema Abdomen/GI: Normal bowel sounds, soft, nontender to palpation in all quadrants Extremities/MSK: Area of circular erythema on lateral aspect of R ankle (surgical marker outlining this region with minimal erythema extending beyond the demarcation), extremities motor strength intact, able to actively move all extremities. Neurologic: No overt focal deficits, CN's II-XI not formally tested but appear grossly intact bilaterally Results & Data Results & Data Vital Signs (Past 12 Hours) Vital Signs Temp Pulse Resp BP Pulse Ox O2 Del Method 02/03/25 07:34 36.3 C L 58 L 18 124/85 98 Room Air 02/03/25 03:42 36.3 C L 57 L 16 115/68 96 Room Air
[2025-02-04 07:24] LABS: Hematocrit (blood only) 41.1 % (42.0-52.0); Hemoglobin 14.1 g/dl (14.0-18.0); Mean Corpuscular Hemoglobin 32.4 pg (25.0-34.0); Mean Corpuscular Volume 94.5 fL (80.0-100.0); Platelet Count 216 K/uL (130-400); RDW Standard Deviation 43.4 fL (36.4-46.3); Red Blood Count 4.35 M/uL (4.70-6.10); White Blood Count 5.24 K/ul (4.8-10.8)
[2025-02-04 07:27] VITALS: BP 105/79; PULSE 63; RESP 19; TEMP 97.5; O2SAT 96
[2025-02-04 07:42] LABS: Anion Gap 5.0 (3-11); Blood Urea Nitrogen 10.0 mg/dl (6-23); Calcium 8.8 mg/dl (8.6-10.3); Carbon Dioxide 28.0 mmol/L (21-32); Chloride 109.0 mmol/L (98-107); Creatinine Clr Calc Pharmacy 72.5 ml/min; Glucose 95.0 mg/dl (70-99(Fasting)); Magnesium 1.8 mg/dl (1.7-2.4); Potassium 4.5 mmol/L (3.5-5.1); Sodium 142.0 mmol/L (136-145)
--- NOTE | 2025-02-04 12:28 | Discharge Summary ---
Date of Service February 04, 2025 Admission HPI Per Admitting Provider Patient is a 64-year-old male with past medical history significant for generalized osteoarthritis, inflammatory arthritis, chondrocalcinosis, ADD and history of alcohol abuse who presented the ED with complaint of an infected bug bite on his right ankle. History obtained from the patient, discussion with ED provider and associated chart review. Noticed a bug bite on the lateral aspect of his right ankle approximately 1 week ago. Unclear what exactly bit him. Mentions that area of the bite has been quite pruritic. Started to develop erythema surrounding the bite site last which has progressively worsened. Mentions erythematous area is mildly TTP and warm to touch. No reported fevers or chills. Was seen at an urgent care facility on Sunday and prescribed oral Keflex. The area of erythema on his lateral right ankle was outlined with surgical marker. The erythema has slowly continued to spread beyond the surgical marking despite compliance with oral antibiotic therapy which ultimately made him decide to come in to the ED. Mild discomfort with movement of the right ankle joint but otherwise no changes in joint mobility. No prior cigarette use. Recreational marijuana use. Chronic alcohol use >20 years. Consumes 3-4 beers/day, last alcoholic beverage consumed yesterday afternoon. Has been weaning down. Previously was drinking a 12-pack of beer/day. On naltrexone with the intention of quitting eventually. Strong family history of alcoholism. No personal history of alcohol withdrawal or alcohol withdrawal seizures. Admission Exam Per Admitting Provider General: WD/WN, NAD, sitting up in bed, A&Ox3, conversing appropriately HEENT: Normocephalic, atraumatic, moist mucous membranes Respiratory: Normal respiratory effort, CTAB Cardiovascular: RRR, normal peripheral pulses, no BLE edema Abdomen/GI: Normal bowel sounds, soft, nontender to palpation in all quadrants Extremities/MSK: Area of circular erythema on lateral aspect of R ankle (surgical marker outlining this region with minimal erythema extending beyond the demarcation), extremities motor strength intact, able to actively move all extremities Neurologic: No overt focal deficits, CN's II-XI not formally tested but appear grossly intact bilaterally Principal Diagnosis Right foot cellulitis Discharge Exam Constitutional + well hydrated; no acute distress Eyes PERRL, conjunctivae normal, anicteric sclerae ENMT external ear and nose normal, oropharynx normal Respiratory normal respiratory effort, lungs clear to auscultation Cardiovascular Rate/Rhythm: regular rate and regular rhythm Gastrointestinal (Abdomen) normal bowel sounds, soft, nontender, no hepatosplenomegaly Musculoskeletal Right ankle cellulitis with scab. Erythematous area much improved compared to marking. Nontender Neurologic PERRL, EOMI, accommodation nl, no face palsy, no dysarthria Psychiatric A+Ox3, euthymic affect Discharge Data Allergies Allergy/AdvReac Type Severity Reaction Status Date / Time bee venom protein (honey bee) Allergy Unknown Unverified 02/02/25 10:34 shellfish derived Allergy Unknown Unverified 02/02/25 10:34 Consultations 02/02/25 09:55 ED Decision to Admit Stat Hospital Course (1) Cellulitis of right lower extremity: (2) History of alcohol use: (3) At risk for alcohol withdrawal: 64-year-old male with past medical history significant for generalized osteoarthritis, inflammatory arthritis, chondrocalcinosis, ADD and history of alcohol abuse who presented the ED with complaint of an infected bug bite on his right ankle and was found to have RLE cellulitis. 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 Bite was pruritic in nature. Developed erythema and pain around bite site starting on . Was seen by urgent care on Sunday and started on po Keflex. Took 4 doses. Erythema, pain and swelling continued to worsen despite compliance with Keflex. No reported systemic complaints such as fever or chills. Labs personally reviewed and grossly unremarkable - no leukocytosis, negative procal. R ankle XR grossly unremarkable. Was started on IV ceftriaxone Marked improvement per patient. Clinically improved on exam Antibiotics changed to amoxicillin-clavulanate to complete treatment History of alcohol abuse Chronic alcohol use >20yr. Consumes 3-4 beers/day. Previously was consuming 12-pack of beer/day. Has been slowly weaning, recently started on naltrexone a few weeks ago. No prior personal h/o alcohol withdrawal or alcohol withdrawal seizures. Total Time Total Time Spent Total Time Spent (In Minutes): 35 Total Time Includes: Examination of the Patient, Discharge Planning and Medication Reconciliation Discharge Plan Discharge Items Patient Disposition: Home - Self-Care Reason For Visit: RLE CELLULITIS Discharge Diagnosis: Right foot cellulitis Condition on Discharge: Good Activity: Resume your previous activity Non-emergency contact: Primary Care Provider Call non-emergency contact if: you have any medication questions Follow-up/Referrals: Miya Stahl DO [Primary Care Provider] - 02/10/25 2:40 pm Diet: Regular Addtl Attending Provider Instructions: Mr Wilson Pizarro were evaluated and managed for the above mentioned diagnosis. You are being discharged on oral antibiotics (augmentin) for few more days to complete treatment. Please ensure follow up with your Primary Doctor. It was a pleasure taking care of you Pending Studies at Discharge: No Stand-Alone Forms: My [facility], Smoking Cessation Medications and DC Order Prescriptions: New amoxicillin-pot clavulanate 875-125 mg tablet 1 tab PO BID 5 Days Qty: 10 0RF Continued multivitamin Tablet 1 tab PO QAM buspirone 10 mg Tablet 20 mg PO QAM bupropion HCl 300 mg Tablet Extended Release 24 Hr 300 mg PO QAM cyanocobalamin (vitamin B-12) [Vitamin B-12] 1,000 mcg Tablet 1,000 mcg PO QAM milk thistle 500 mg Capsule 500 mg PO QAM Rx Instructions: give with meal/snack quetiapine 200 mg Tablet 200 mg PO HS naltrexone 50 mg tablet 50 mg PO QAM Discharge Orders: Discharge Order (Routine); Ordered 02/04/25 Ordered By: Karen Kraus Admission Data Admit Date/Time: 02/02/25 10:15 Attending Provider: Karen Kraus I. Admit Provider: Venu Parmar Primary Care Provider: Miya Stahl Other Providers: Venu Parmar; Alex Hubbard Other Interventions: Discharge Summary Assessment (RN) Last Done: 02/04/25 13:29
== END 2025-02-04 13:58 | disposition home or self-care (01) | DRG 603 ==
LOC: ED 07:26 → EDINP 10:15 → SUATTDRO 10:15 → 3W 12:46